=== PATIENT | male | born 1965 | race Caucasian/White ===

== ENCOUNTER 2017-05-11 21:44 | Emergency (ER) | payer OTHER ==
[~2017-05-11] VITALS: Ht 190.5 cm; Wt 82.5 kg
[2017-05-11 21:51] VITALS: Ht 190.5 cm; Wt 82.5 kg
[2017-05-11 22:34] LABS: HEMATOCRIT 41.9 % (42-52); MEAN CELL VOLUME 87.1 fL (80-100); MEAN CORPUSCULAR HEMOGLOBIN 30.4 pg (25-34); MEAN CORPUSCULAR HGB CONC 34.8 g/dl (32-36); MEAN PLATELET VOLUME 9.7 fL (7.4-10.4); PLATELET COUNT 226 K/uL (130-400); RED BLOOD COUNT 4.81 M/uL (4.7-6.1); WHITE BLOOD COUNT 12.89 K/uL (4.8-10.8)
--- NOTE | 2017-05-11 22:35 | EMERGENCY ROOM VISIT NOTE ---
History Report prepared by Avery: Susannah Hogan Under the Supervision of: Dr. Valerie Guy M.D. First contact with patient: 21:58 Chief Complaint: MENTAL HEALTH EVALUATION Stated Complaint: SUICIDE WATCH History of Present Illness The patient is a 52 year old male who presents to the Emergency Room for a mental health evaluation after having persistent suicide ideation starting this morning. The patient states that he was up all night trying to help his son get his stuff ready fo school. The patient has a 30 year history of anxiety disorder. He states that he "gave up on my 25 year marriage today". The patient states that he is homeless. He also states "I feel like the clock is ticking" and that "I figured I would prior to 30". The patient states that he feels "like an inconvenience to him family". The patient notes that he sees a psychiatrist but denies having a PCP. He also states he is unemployed. The patient has a history of kidney stones and high cholesterol. He also has a family history of stroke and heart attacks. He also states that he sometimes has thoughts about hurting himself. The patient states that he previously had a suicide attempt when he was young that was a "cry for help". Source of History: patient Onset: this morning Position: other (global) Quality: other (mental health evaluation) Timing: other (persistent) Review of Systems See HPI for pertinent positives & negatives. A total of 10 systems reviewed and were otherwise negative. Past Medical & Surgical Medical Problems: (1) High cholesterol (2) Kidney stones Family History Heart attack Stroke Social History Smoking Status: Never Smoker Marital Status: Housing Status: lives with family Occupation Status: unemployed Current/Historical Medications Scheduled Clonazepam (Klonopin), 0.5 MG PO BID Lamotrigine (Lamictal), 200 MG PO DAILY Levothyroxine Sodium (Synthroid), 25 MCG PO DAILY Mirtazapine (Mirtazapine), 45 MG PO HS Pravastatin Sodium (Pravachol), 1 TAB PO DAILY Venlafaxine Hcl (Venlafaxine Hcl Er), 300 TAB PO DAILY Scheduled PRN Oxycodone/Acetaminophen 7.5MG/325MG (Percocet 7.5MG/325MG), 1 TAB PO Q6H PRN for Pain Allergies Coded Allergies: No Known Allergies (Unverified , 05/11/17) Physical Exam Vital Signs Date Time Temp Pulse Resp B/P (MAP) Pulse Ox O2 Delivery O2 Flow Rate FiO2 05/11/17 23:10 89 20 116/74 98 Room Air 05/11/17 21:51 37.1 127 20 114/76 96 Room Air Physical Exam Vital signs reviewed. General: Disheveled male, in no significant distress. Tearful. HEENT: No scleral icterus, PERRLA, neck supple. Atraumatic. Positive rhinorrhea Cardiovascular: Regular rate and rhythm, no extra sounds. Pulmonary: Clear to auscultation bilaterally, normal work of breathing. Abdomen: Soft, nontender, nondistended, positive bowel sounds. Musculoskeletal: Atraumatic, no peripheral edema. Neurologic: Patient awake alert and oriented x 3, full strength in all 4 extremities. Cranial nerves 2 through 12 grossly intact. Psych: Passive suicidal ideation, negative homicidal ideation Skin: Warm, dry, no rash Medical Decision & Procedures Laboratory Results 05/11/17 22:21 Red Blood Count 4.81, Mean Corpuscular Volume 87.1, Mean Corpuscular Hemoglobin 30.4, Mean Corpuscular Hemoglobin Concent 34.8, Mean Platelet Volume 9.7, Neutrophils (%) (Auto) 78.4, Lymphocytes (%) (Auto) 10.4, Monocytes (%) (Auto) 10.3, Eosinophils (%) (Auto) 0.1, Basophils (%) (Auto) 0.3, Neutrophils # (Auto ) 10.11, Lymphocytes # (Auto) 1.34, Monocytes # (Auto) 1.33, Eosinophils # (Auto ) 0.01, Basophils # (Auto) 0.04 05/11/17 22:21 Test 05/11/17 22:21 White Blood Count 12.89 K/uL (4.8-10.8) Red Blood Count 4.81 M/uL (4.7-6.1) Hemoglobin 14.6 g/dL (14.0-18.0) Hematocrit 41.9 % (42-52) Mean Corpuscular Volume 87.1 fL (80-100) Mean Corpuscular Hemoglobin 30.4 pg (25-34) Mean Corpuscular Hemoglobin Concent 34.8 g/dl (32-36) Platelet Count 226 K/uL (130-400) Mean Platelet Volume 9.7 fL (7.4-10.4) Neutrophils (%) (Auto) 78.4 % Lymphocytes (%) (Auto) 10.4 % Monocytes (%) (Auto) 10.3 % Eosinophils (%) (Auto) 0.1 % Basophils (%) (Auto) 0.3 % Neutrophils # (Auto) 10.11 K/uL (1.4-6.5) Lymphocytes # (Auto) 1.34 K/uL (1.2-3.4) Monocytes # (Auto) 1.33 K/uL (0.11-0.59) Eosinophils # (Auto) 0.01 K/uL (0-0.5) Basophils # (Auto) 0.04 K/uL (0-0.2) RDW Standard Deviation 42.8 fL (36.4-46.3) RDW Coefficient of Variation 13.4 % (11.5-14.5) Immature Granulocyte % (Auto) 0.5 % Immature Granulocyte # (Auto) 0.06 K/uL (0.00-0.02) Anion Gap 12.0 mmol/L (3-11) Est Creatinine Clear Calc Drug Dose 60.7 ml/min Estimated GFR () 53.3 Estimated GFR (Non- 46.0 BUN/Creatinine Ratio 13.2 (10-20) Calcium Level 9.7 mg/dl (8.5-10.1) Total Bilirubin 1.1 mg/dl (0.2-1) Direct Bilirubin 0.2 mg/dl (0-0.2) Aspartate Amino Transf (AST/SGOT) 43 U/L (15-37) Alanine Aminotransferase (ALT/SGPT) 40 U/L (12-78) Alkaline Phosphatase 90 U/L (45-117) Total Protein 7.9 gm/dl (6.4-8.2) Albumin 4.7 gm/dl (3.4-5.0) Thyroid Stimulating Hormone (TSH) 2.580 uIu/ml (0.300-4.500) Salicylates Level < 1.7 mg/dl (2.8-20) Acetaminophen Level < 2 ug/ml (10-30) Ethyl Alcohol mg/dL < 3.0 mg/dl (0-3) Laboratory results per my review. ED Course 2200: Past medical records reviewed. The patient was evaluated in room A6. A complete history and physical examination was performed. 0030: This patient was signed out to Dr. Lebron at the change in shifts. Medical Decision Differential diagnosis: Etiologies such as mood disorder, infection, hypoglycemia, electrolyte abnormalities, cardiac sources, intracerebral event, toxicologic, neurologic, as well as others were entertained. This patient was evaluated and appeared to be in no significant distress. Patient was medically cleared. Mental health manager case was consulted for psychiatric evaluation. The case has been signed out to Dr. Lebron at the change of shift, pending mental health evaluation. The patient is voluntary for admission at this time. Medication Reconcilliation Current Medication List: was personally reviewed by me Blood Pressure Screening Patient's blood pressure: Normal blood pressure Blood pressure disposition: Did not require urgent referral Impression Primary Impression: Mood disorder Scribe Attestation The scribe's documentation has been prepared under my direction and personally reviewed by me in its entirety. I confirm that the note above accurately reflects all work, treatment, procedures, and medical decision making performed by me. Departure Information Dispostion Still a Patient Referrals No Doctor, Assigned (PCP) Patient Instructions My [facility]
[2017-05-11 22:57] LABS: BUN/CREATININE RATIO 13.2 (10-20); CALCIUM 9.7 mg/dl (8.5-10.1); CREATININE 1.7 mg/dl (0.60-1.40); POTASSIUM 3.8 mmol/L (3.5-5.1)
[2017-05-11] MEDS ORDERED: RMRS/45 PO (23:03)
[2017-05-11] MEDS ORDERED: LAMO200T38 PO (23:03)
[2017-05-11] MEDS ORDERED: PRAV40TA PO (23:03)
[2017-05-11] MEDS ORDERED: CLON0.5T3 PO (23:03)
[2017-05-11] MEDS ORDERED: VENL150T33 PO (23:03)
[2017-05-11] MEDS ORDERED: OXYC7.5T65 PO (23:03)
[2017-05-11] MEDS ORDERED: LEVO25TA PO (23:03)
[2017-05-11 23:05] LABS: ACETAMINOPHEN < 2 ug/ml (10-30)
[2017-05-11 23:08] LABS: THYROID STIMULATING HORMONE 2.58 uIu/ml (0.300-4.500)
[2017-05-11 23:32] LABS: BASO % 0.3 %; BASO ABS # 0.04 K/uL (0-0.2); COMPLETE YES; EOS % 0.1 %; IG% 0.5 %; LYMPH % 10.4 %; LYMPH ABS # 1.34 K/uL (1.2-3.4); MONO % 10.3 %; NEUT % 78.4 %
[2017-05-12 00:22] LABS: URINE APPEARANCE CLEAR (CLEAR); URINE BILIRUBIN NEG (NEG); URINE COLOR DK YELLOW; URINE NITRITE NEG (NEG); URINE SPECIFIC GRAVITY 1.027 (1.000-1.030); UROBILINOGEN NEG (NEG); ZZUR CULT IF INDIC CLEAN CATCH NO
[2017-05-12 00:24] LABS: MANUAL MICROSCOPIC REQUIRED? NO; REVIEW REQ? NO
[2017-05-12 00:40] LABS: BENZODIAZEPINE, URINE NEG (NEG); COCAINE,URINE NEG (NEG); PHENCYCLIDINE, URINE NEG (NEG)
--- NOTE | 2017-05-12 07:14 | EMERGENCY ROOM VISIT NOTE ---
ED Visit Note First contact with patient: 23:49 52 yr old male arrived earlier in the evening for mental health evaluation secondary to depression and suicidal ideation. Patient voluntary mental health evaluation. Stable and medically clear per Dr Guy. Of note 3+ ketones in urine which is secondary to poor recent oral intake which now that he is eating/drinking without issue I feel will clear and he does not require IV fluids. Mental Health evaluation and accepted to the [facility].
[2017-05-12] MEDS ORDERED: LEVOTHYROXINE 25 MCG TAB PO STA (09:05)
[2017-05-12] MEDS ORDERED: VENLAFAXINE HCL XR 150 MG CAPXR PO STA (09:05)
[2017-05-12] MEDS ORDERED: CLONAZEPAM 0.5 MG TAB PO STA (09:05)
[2017-05-12] MEDS ORDERED: PRAVASTATIN SOD 40 MG TAB PO STA (09:05)
[2017-05-12 11:59] VITALS: BP 110/70; PULSE 84; TEMP 37.1; O2SAT 94
[2017-05-18 13:29] LABS: SYNTHETIC CANNABINOIDS QL URIN NEGATIVE (Negative)
== END 2017-05-12 11:58 ==
LOC: C.EDB 21:45 → C.EDA 05-12 11:58
DX: F39 Unspecified mood [affective] disorder (principal); R45.851 Suicidal ideations; F41.9 Anxiety disorder, unspecified; E78.5 Hyperlipidemia, unspecified; Z87.442 Personal history of urinary calculi; Z82.3 Family history of stroke; Z82.49 Family history of ischemic heart disease and other diseases of the circulatory system